=== PATIENT | female | born 1960 | race Caucasian/White ===

== ENCOUNTER 2018-02-01 11:00 | Day surgery (SDC) | payer OTHER | END 2018-02-01 13:05 | disposition home or self-care (01) | LOC: ORSCSDS 11:00 | DX: M67.432 Ganglion, left wrist (principal); Z53.8 Procedure and treatment not carried out for other reasons | CPT/HCPCS: J0690; J7120 ==

== ENCOUNTER 2018-04-05 08:08 | Day surgery (SDC) | payer OTHER ==
[~2018-04-05] VITALS: Ht 172.7 cm; Wt 70.8 kg
--- NOTE | 2018-04-05 10:21 | NUR ---
04/05/18 1021 Charis Qiu PT INTO RECLINER AT 1017, STEADY DURING TRANSFER. VSS. PT DENIES PAIN OR NAUSEA AT THIS TIME. REFUSES PO NOURISHMENT AT THIS TIME. DON AT CHAIRSIDE. CALL LIGHT IN REACH. WILL CONT TO MONITOR
== END 2018-04-05 11:10 | disposition home or self-care (01) ==
LOC: ORSCSDS 08:08
PROVIDERS: Orthopaedic Surgery
PROC: 0LB60ZZ Excision of Left Lower Arm and Wrist Tendon, Open Approach (ICD-10-PCS; principal; 2018-04-05 09:45)
DX: M67.432 Ganglion, left wrist (principal)
CPT/HCPCS: 88304; J0690; J1100; J1885; J2250; J2405; J7120

== ENCOUNTER → 2018-05-31 | Outpatient (CLI) | payer OTHER ==
[2018-06-05 08:13] LABS: HPV 16 Negative (Negative); HPV 18 Negative (Negative); HPV OTHER HR TYPES Negative (Negative)
== END | disposition home or self-care (01) ==
LOC: LAB SHORT 11:22 → LAB 11:22
PROVIDERS: Family Medicine
DX: Z01.419 Encounter for gynecological examination (general) (routine) without abnormal findings (principal)
CPT/HCPCS: 87624; G0145